=== PATIENT | female | born 1940 | race Caucasian/White ===

== ENCOUNTER → 2016-10-09 | Outpatient (CLI) | payer MEDICARE, OTHER | END | disposition home or self-care (01) | LOC: CFH 14:31 | PROVIDERS: ATTEND Internal Medicine Critical Care Medicine | DX: J47.9 Bronchiectasis, uncomplicated (principal); R91.8 Other nonspecific abnormal finding of lung field; J98.4 Other disorders of lung | CPT/HCPCS: 71250 ==

== ENCOUNTER 2016-11-06 12:31 | Day surgery (SDC) | payer MEDICARE, OTHER ==
[~2016-11-06 12:31] MED LIST: BIVALIRUDIN 250 MG ONE; FENTANYL PF 100 MCG/2ML ONE; HEPARIN 1,000 UNITS/ML, 10ML ONE; LIDOCAINE 2%, 20ML ONE; MIDAZOLAM 1 MG/ML, 5ML ONE; NITROGLYCERIN 5 MG/ML, 10ML ONE; TICAGRELOR 90 MG TABLET ONE; VERAPAMIL 2.5 MG/ML, 2ML ONE
[2016-11-06] MEDS ORDERED: ATOR80TA75 PO (14:33)
[2016-11-06] MEDS ORDERED: ATOR10TA9 PO (14:33)
[2016-11-06] MEDS ORDERED: ASPI-621 PO (14:33)
[2016-11-06] MEDS ORDERED: MONT10TA6 PO (14:34)
[2016-11-06] MEDS ORDERED: LEVO50TA5 PO (14:34)
[2016-11-08 15:29] LABS: ASPARTATE AMINO TRANSFERASE 28 U/L (15-37); BLOOD UREA NITROGEN 18 mg/dL (7-18)
== END 2016-11-06 15:30 | disposition home or self-care (01) ==
LOC: CACL 12:31
PROVIDERS: ATTEND Internal Medicine
DX: I25.10 Atherosclerotic heart disease of native coronary artery without angina pectoris (principal); J44.9 Chronic obstructive pulmonary disease, unspecified; J45.909 Unspecified asthma, uncomplicated; E78.5 Hyperlipidemia, unspecified; Z72.0 Tobacco use
CPT/HCPCS: 36415; 80053; 85025; 85610; 85730; 93458; 99156; C1894; J1644; J2250; J3010; J3490; Q9967; J0583

== ENCOUNTER → 2020-12-20 | Outpatient (CLI) | payer MEDICARE, OTHER ==
[~2020-12-20] MED LIST changes: +ASPI81TA45 PO; +ATOR-2 PO; +ATOR10TA9 PO; -BIVALIRUDIN 250 MG ONE; -FENTANYL PF 100 MCG/2ML ONE; -HEPARIN 1,000 UNITS/ML, 10ML ONE; +LEVO50TA5 PO; -LIDOCAINE 2%, 20ML ONE; -MIDAZOLAM 1 MG/ML, 5ML ONE; +MONT10TA6 PO; -NITROGLYCERIN 5 MG/ML, 10ML ONE; -TICAGRELOR 90 MG TABLET ONE; -VERAPAMIL 2.5 MG/ML, 2ML ONE
== END | disposition home or self-care (01) ==
LOC: CFH 09:25
PROVIDERS: ATTEND Internal Medicine
DX: M81.8 Other osteoporosis without current pathological fracture (principal)
CPT/HCPCS: 77080